=== PATIENT | female | born 1955 | race Caucasian/White ===

== ENCOUNTER 2017-03-10 09:08 | Outpatient (CLI) | payer MEDICAID ==
[2017-03-10 17:38] LABS: BASOPHILS % (AUTO) 0.2 %; EOSINOPHILS # (AUTO) 0.3 10^3/uL (0.0-0.7); HCT - HEMATOCRIT 42.8 % (37.0-47.0); HGB - HEMOGLOBIN 14.2 g/dL (12.0-16.0); LYMPHOCYTES % (AUTO) 25.5 %; MEAN CORPUSCULAR HEMOGLOBIN 28.7 pg (27.0-31.0); MEAN CORPUSCULAR HGB CONC 33.2 g/dL (32.0-36.0); MEAN CORPUSCULAR VOLUME 86.3 fL (81.0-99.0); MEAN PLATELET VOLUME 7.4 fL (7.9-10.8); MONOCYTES # (AUTO) 0.8 10^3/uL (0.0-1.0); MONOCYTES % (AUTO) 6.8 %; NEUTROPHILS # (AUTO) 7.5 10^3/uL (1.5-6.6); NEUTROPHILS % (AUTO) 64.5 %; NUCLEATED RED BLOOD CELLS AUTO 0.1 /100WBC; RED BLOOD COUNT 4.97 10^6/uL (4.20-5.40); RED CELL DISTRIBUTION WIDTH 13.9 % (12.0-15.0); UNCORRECTED WHITE BLOOD COUNT 11.6 x10^3/uL; WHITE BLOOD COUNT 11.6 x10^3/uL (4.8-10.8)
[2017-03-10 18:00] LABS: ALBUMIN/GLOBULIN RATIO 1.3 (1.0-2.2); BILIRUBIN,TOTAL 0.6 mg/dL (0.2-1.0); BUN - BLOOD UREA NITROGEN 17 mg/dL (6-20); CALCIUM 9.6 mg/dL (8.5-10.3); CARBON DIOXIDE - CO2 25 mmol/L (21-32); CHLORIDE 106 mmol/L (101-111); CHOL/HDL RATIO 3.7 (<4.4); CHOLESTEROL 177 mg/dL; CREATININE 0.7 mg/dL (0.4-1.0); GFR - MDRD 85 (>89); GLUCOSE 103 mg/dL (70-100); HDL CHOLESTEROL 48 mg/dL; LDL/HDL RATIO 2.2 (<4.4); POTASSIUM 3.6 mmol/L (3.5-5.0); SODIUM 138 mmol/L (135-145); TOTAL PROTEIN 7.2 g/dL (6.7-8.2); TRIGLYCERIDES 113 mg/dL; VLDL CHOLESTEROL 23 mg/dL
== END 2017-03-10 09:09 | disposition home or self-care (01) ==
LOC: LAB.F 09:08
PROVIDERS: ATTEND Nurse Practitioner Family
DX: Z82.49 Family history of ischemic heart disease and other diseases of the circulatory system (principal); E78.5 Hyperlipidemia, unspecified
CPT/HCPCS: 36415; 80053; 80061; 84443; 85025

== ENCOUNTER 2017-12-23 10:16 | Outpatient (CLI) | payer MEDICAID ==
--- NOTE | 2017-12-23 11:43 | XRAY Report ---
Procedure Date: 12/23/2017 Accession Number: [id number] / [id number] Procedure: XRS - Hand 3 View LT CPT Code: FULL RESULT: EXAM: Hand 3 View LT DATE: 12/23/2017 10:29 AM CLINICAL HISTORY: PAIN IN LEFT HAND COMPARISON: None. TECHNIQUE: 3 views. FINDINGS: Radiograph is limited by suboptimal positioning of the AP view. This limits evaluation of the scapholunate interval. Bones: Normal. No fractures or bone lesions. Joints: Mild to moderate osteoarthrosis of the first carpometacarpal joint with subluxation. Soft Tissues: Normal. No soft tissue swelling. IMPRESSION: No fracture or dislocation is identified. Degenerative changes of the base of the thumb. If there is concern for injury in the region of the scaphoid/wrist injury. Scaphoid views could be obtained. RADIA
== END 2017-12-23 10:17 | disposition home or self-care (01) ==
LOC: DI.S 10:16
PROVIDERS: ATTEND Nurse Practitioner Family
DX: M18.12 Unilateral primary osteoarthritis of first carpometacarpal joint, left hand (principal); M79.642 Pain in left hand

== ENCOUNTER 2018-03-06 11:46 | Outpatient (CLI) | payer MEDICAID | END 2018-03-06 11:47 | disposition critical access hospital (66) | LOC: EMS 11:46 | PROVIDERS: ATTEND Surgery | DX: R09.89 Other specified symptoms and signs involving the circulatory and respiratory systems (principal); R42 Dizziness and giddiness | CPT/HCPCS: A0425; A0429; A0999 ==

== ENCOUNTER 2018-03-06 12:15 | Emergency (ER) | payer MEDICAID ==
--- NOTE | 2018-03-06 12:30 | ED Physician Documentation ---
PD HPI CHEST PAIN - Stated complaint Stated Complaint: PALPITATIONS - History obtained from History obtained from: Patient - History of Present Illness Timing - onset: Other (For the last 3-4 days she has had intermittent sensations of rapid heartbeat, there is no associated pain but she is short of breath and dizzy when it happens. It will happen from seconds to minutes at a time, there is no clear pattern to it. She denies pedal edema. She does have a history of thyroid issues but she is not sure whether she was hypothyroid or hyperthyroid. No pedal edema or calf pain. She has an extensive family history of coronary disease.) Review of Systems Ten Systems: 10 systems reviewed and negative Constitutional: denies: Fever, Chills Cardiac: reports: Palpitations. denies: Chest pain / pressure, Pedal edema, Calf pain Respiratory: denies: Cough, Wheezing GI: denies: Abdominal Pain, Abdominal Swelling, Nausea, Vomiting PD PAST MEDICAL HISTORY - Present Medications Home Medications: Ambulatory Orders Medication Instructions Recorded Confirmed Potassium Chloride 10 meq PO DAILY #10 capsule.er 03/06/18 - Allergies Allergies/Adverse Reactions: Allergies Allergy/AdvReac Type Severity Reaction Status Date / Time No Known Drug Allergies Allergy Verified 03/06/18 12:20 PD ED PE NORMAL - Vitals Vital signs reviewed: Yes - General General: Alert and oriented X 3, No acute distress - HEENT HEENT: PERRL, EOMI - Neck Neck: Supple, no meningeal sign, No bony TTP - Cardiac Cardiac: RRR, No murmur - Respiratory Respiratory: No respiratory distress, Clear bilaterally - Abdomen Abdomen: Normal bowel sounds, Soft, Non tender - Back Back: No CVA TTP, No spinal TTP - Extremities Extremities: No edema, No calf tenderness / cord - Neuro Neuro: Alert and oriented X 3, Normal speech - Psych Psych: Normal mood, Normal affect Results - Vitals Vitals: Vital Signs - 24 hr 03/06/18 03/06/18 03/06/18 12:20 13:45 14:36 Temperature 36.5 C Heart Rate 92 54 L 67 Respiratory 18 23 17 Rate Blood Pressure 152/118 H 92/61 138/85 H O2 Saturation 95 100 100 Oxygen O2 Source Room air - EKG (time done) 1221 Rate: Rate (enter#) (89) Rhythm: NSR [place]: Normal Intervals: Normal ID QRS: Normal Ischemia: Normal ST segments Computer interpretation: Agree with computer - Labs Labs: Laboratory Tests 03/06/18 03/06/18 03/06/18 12:55 12:55 12:55 WBC 8.9 RBC 5.13 Hgb 15.0 Hct 43.3 MCV 84.3 MCH 29.3 MCHC 34.8 RDW 13.7 Plt Count 347 MPV 6.9 L Neut # (Auto) 5.4 Lymph # (Auto) 2.4 Bath # (Auto) 0.6 Eos # (Auto) 0.2 Baso # (Auto) 0.3 H Absolute Nucleated RBC 0.01 Nucleated RBC % 0.1 Sodium 136 Potassium 2.8 L Chloride 102 Carbon Dioxide 25 Anion Gap 9.0 BUN 13 Creatinine 0.6 Estimated GFR (MDRD) 101 Glucose 104 H Calcium 9.3 Magnesium 2.1 Total Bilirubin 0.9 AST 27 ALT 25 Alkaline Phosphatase 71 Troponin I < 0.04 Total Protein 7.4 Albumin 4.3 Globulin 3.1 Albumin/Globulin Ratio 1.4 Lipase 30 TSH 03/06/18 12:55 WBC RBC Hgb Hct MCV MCH MCHC RDW Plt Count MPV Neut # (Auto) Lymph # (Auto) Bath # (Auto) Eos # (Auto) Baso # (Auto) Absolute Nucleated RBC Nucleated RBC % Sodium Potassium Chloride Carbon Dioxide Anion Gap BUN Creatinine Estimated GFR (MDRD) Glucose Calcium Magnesium Total Bilirubin AST ALT Alkaline Phosphatase Troponin I Total Protein Albumin Globulin Albumin/Globulin Ratio Lipase TSH 2.29 PD MEDICAL DECISION MAKING - ED course ED course: 62-year-old woman presents with palpitations. Prehospital rhythm strips were reviewed and she is having intermittent SVT that looks like a narrow complex atrial flutter the last for seconds at a time. I was called into the room around 1:18 PM, she was having symptoms and on the monitor she was in rapid atrial fibrillation, by the time I got into the room to have resolved back into a normal sinus rhythm. She was administered 5 mg of metoprolol IV. Also her potassium was repleted both IV and orally. After completion of this she had no further recurrence of the atrial fibrillation. She will double her metoprolol and follow-up with her primary care physician. Departure - Departure Disposition: 01 Home, Self Care Clinical Impression: Paroxysmal atrial fibrillation Condition: Good Record reviewed to determine appropriate education?: Yes Instructions: Atrial Fibrillation Dc Prescriptions: Potassium Chloride 10 meq PO DAILY #10 capsule.er Comments: Increase your metoprolol to twice a day, taking an extra dose tonight. Also add the potassium supplements and a baby aspirin a day. Follow-up with your primary care physician within the week to discuss further evaluation and treatment, potentially echocardiogram plus or minus cardiology referral especially if symptoms are recurrent.
[2018-03-06 13:02] LABS: BASOPHILS # (AUTO) 0.3 10^3/uL (0.0-0.1); BASOPHILS % (AUTO) 3.2 %; EOSINOPHILS # (AUTO) 0.2 10^3/uL (0.0-0.7); LYMPHOCYTES # (AUTO) 2.4 10^3/uL (1.5-3.5); LYMPHOCYTES % (AUTO) 27.3 %; MEAN CORPUSCULAR HEMOGLOBIN 29.3 pg (27.0-31.0); MEAN CORPUSCULAR HGB CONC 34.8 g/dL (32.0-36.0); MEAN CORPUSCULAR VOLUME 84.3 fL (81.0-99.0); MEAN PLATELET VOLUME 6.9 fL (7.9-10.8); MONOCYTES # (AUTO) 0.6 10^3/uL (0.0-1.0); MONOCYTES % (AUTO) 6.2 %; NEUTROPHILS # (AUTO) 5.4 10^3/uL (1.5-6.6); NEUTROPHILS % (AUTO) 61.3 %; PLT - PLATELET COUNT 347 10^3/uL (130-450); RED BLOOD COUNT 5.13 10^6/uL (4.20-5.40); RED CELL DISTRIBUTION WIDTH 13.7 % (12.0-15.0); WHITE BLOOD COUNT 8.9 x10^3/uL (4.8-10.8)
[2018-03-06] MEDS ORDERED: METOPROLOL 5 MG/5 ML VIAL IVP STA (13:19)
[2018-03-06 13:25] LABS: ALBUMIN 4.3 g/dL (3.2-5.5); ALBUMIN/GLOBULIN RATIO 1.4 (1.0-2.2); BILIRUBIN,TOTAL 0.9 mg/dL (0.2-1.0); CALCIUM 9.3 mg/dL (8.5-10.3); CREATININE 0.6 mg/dL (0.4-1.0); MAGNESIUM 2.1 mg/dL (1.7-2.8); TOTAL PROTEIN 7.4 g/dL (6.7-8.2)
[2018-03-06] MEDS ORDERED: POTASSIUM BICARB 25 MEQ TABLET PO STA (13:29)
[2018-03-06] MEDS ORDERED: POTASSIUM CHLOR 10 MEQ/100 ML 10 MEQ/100 ML BAG IV ONE (13:29)
[2018-03-06] MEDS ORDERED: SODIUM CHLORIDE 0.9% 1,000 ML IV ONE (13:59)
[2018-03-06 15:23] VITALS: BP 120/92
== END 2018-03-06 15:22 | disposition home or self-care (01) ==
LOC: EDUNIT# → ED 12:15
DX: I48.0 Paroxysmal atrial fibrillation (principal); I47.1 Supraventricular tachycardia; Z82.49 Family history of ischemic heart disease and other diseases of the circulatory system
CPT/HCPCS: 36415; 80053; 83690; 83735; 84443; 84484; 85025; 93005; 96365; 99284; A9270

== ENCOUNTER 2018-03-18 07:30 | Outpatient (CLI) | payer MEDICAID ==
[2018-03-18 10:14] LABS: BASOPHILS % (AUTO) 0.5 %; EOSINOPHILS # (AUTO) 0.4 10^3/uL (0.0-0.7); EOSINOPHILS % (AUTO) 4.3 %; HGB - HEMOGLOBIN 13.5 g/dL (12.0-16.0); LYMPHOCYTES # (AUTO) 3.1 10^3/uL (1.5-3.5); LYMPHOCYTES % (AUTO) 32.3 %; MEAN CORPUSCULAR HEMOGLOBIN 29.2 pg (27.0-31.0); MEAN CORPUSCULAR HGB CONC 34.3 g/dL (32.0-36.0); MEAN PLATELET VOLUME 7.4 fL (7.9-10.8); MONOCYTES # (AUTO) 0.6 10^3/uL (0.0-1.0); MONOCYTES % (AUTO) 6.2 %; NEUTROPHILS # (AUTO) 5.4 10^3/uL (1.5-6.6); NEUTROPHILS % (AUTO) 56.7 %; PLT - PLATELET COUNT 357 10^3/uL (130-450); RED BLOOD COUNT 4.63 10^6/uL (4.20-5.40); RED CELL DISTRIBUTION WIDTH 13.6 % (12.0-15.0); WHITE BLOOD COUNT 9.6 x10^3/uL (4.8-10.8)
[2018-03-18 10:23] LABS: ALBUMIN/GLOBULIN RATIO 1.5 (1.0-2.2); ALKALINE PHOSPHATASE 61 IU/L (42-121); ALT ALANINE AMINOTRANSFERASE 22 IU/L (10-60); AST ASPARTATE AMINOTRANSFERASE 22 IU/L (10-42); BILIRUBIN,TOTAL 0.6 mg/dL (0.2-1.0); BUN - BLOOD UREA NITROGEN 15 mg/dL (6-20); CALCIUM 9.1 mg/dL (8.5-10.3); CARBON DIOXIDE - CO2 25 mmol/L (21-32); CHLORIDE 107 mmol/L (101-111); CHOL/HDL RATIO 3.2 (<4.4); CHOLESTEROL 122 mg/dL; CREATININE 0.6 mg/dL (0.4-1.0); GFR - MDRD 101 (>89); GLUCOSE 102 mg/dL (70-100); HDL CHOLESTEROL 38 mg/dL; LDL CHOLESTEROL,CALCULATED 66 mg/dL; LDL/HDL RATIO 1.7 (<4.4); SODIUM 138 mmol/L (135-145); TOTAL PROTEIN 6.7 g/dL (6.7-8.2); VLDL CHOLESTEROL 18 mg/dL
== END 2018-03-18 07:31 | disposition home or self-care (01) ==
LOC: LAB.F 07:30
PROVIDERS: ATTEND Nurse Practitioner Family
DX: I10 Essential (primary) hypertension (principal); E78.5 Hyperlipidemia, unspecified
CPT/HCPCS: 36415; 80053; 80061; 83721; 84443; 85025

== ENCOUNTER 2018-03-23 13:11 | Outpatient (CLI) | payer MEDICAID ==
--- NOTE | 2018-03-28 10:15 | Mammography Report ---
Reason: SCREENING MAMMOGRAM FOR BREAST CANCER Procedure Date: 03/23/2018 Accession Number: [id number] / [id number] Procedure: DUARTE - Screening Mammo w/Kenny CPT Code: FULL RESULT: EXAM: Screening Mammo w/Kenny DATE: 03/23/2018 1:57 PM CLINICAL HISTORY: Routine screening. No reported personal or family history of breast cancer. TECHNIQUE: Bilateral CC and MLO views were obtained. COMPARISON: 02/19/2015 through 10/26/2012. FINDINGS: The breasts demonstrate heterogeneously dense fibroglandular parenchyma bilaterally. Right breast: There is a stable biopsy marker associated with a circumscribed oval mass in the middle depth right upper outer quadrant. There are no suspicious masses, calcifications or areas of distortion. Left breast: There is a 9 mm asymmetry seen best on CC projections in the 5:30 to 6:00 breast, 3 cm from nipple seen best on 3-D imaging (reference MLO slice 15; CC image 15). There is a stable background of scattered oval and round benign-appearing masses. No suspicious calcifications. IMPRESSION: Incomplete examination RECOMMENDATION: Left breast: 9 mm asymmetry in the 5:30 to 6:00 left breast as described. BI-RADS Category 0. Additional imaging is recommended. Right breast: Benign. BI-RADS Category 2. BI-RADS CATEGORY 0: Incomplete examination STANDARD QUALIFYING STATEMENTS: 1. This examination was not reviewed with the aid of Computer-Aided Detection (CAD). 2. A negative or benign imaging report should not preclude biopsy if clinically suspicious findings are present. 3. Dense breasts may obscure an underlying neoplasm. 4. This examination was reviewed with the aid of 3D breast imaging (tomosynthesis).
== END 2018-03-23 13:12 | disposition home or self-care (01) ==
LOC: DI 13:11
PROVIDERS: ATTEND Nurse Practitioner Family
DX: Z12.31 Encounter for screening mammogram for malignant neoplasm of breast (principal); R92.8 Other abnormal and inconclusive findings on diagnostic imaging of breast
CPT/HCPCS: 77063; 77067

== ENCOUNTER 2018-03-27 09:24 | Outpatient (CLI) | payer MEDICAID | END 2018-03-27 09:25 | disposition EMS.NT | LOC: EMS 09:24 | PROVIDERS: ATTEND Surgery | DX: R00.0 Tachycardia, unspecified (principal) ==

== ENCOUNTER 2018-04-19 12:59 | Outpatient (CLI) | payer MEDICAID ==
--- NOTE | 2018-04-19 16:18 | Mammography Report ---
Reason: ABN MAMMO - LT SPECIAL VIEWS Procedure Date: 04/19/2018 Accession Number: [id number] / [id number] Procedure: DUARTE - Diag Special Views Dig LT CPT Code: FULL RESULT: EXAM: Diag Special Views Dig LT DATE: 04/19/2018 2:19 PM CLINICAL HISTORY: Diagnostic examination. The patient is recalled for a left breast asymmetry seen on screening mammogram. TECHNIQUE: Left spot CC and spot MLO as well as left MLO images were obtained. Focused left breast ultrasound was performed. COMPARISON: 03/23/2018 through 10/26/2012. FINDINGS: The left breast demonstrates heterogeneously dense fibroglandular parenchyma . No definite underlying mass is identified on today's imaging. Focused breast ultrasound examination identified no mass or other finding correlate to the mammographic asymmetry. Spot views demonstrate the asymmetry to appears similar to surrounding breast tissue, probably benign. No suspicious calcifications, masses or architectural distortion is identified. IMPRESSION: Probable benign findings RECOMMENDATION: Recommend diagnostic bilateral mammogram in 6 months. BIRADS CATEGORY 3 STANDARD QUALIFYING STATEMENTS: 1. This examination was not reviewed with the aid of Computer-Aided Detection (CAD). 2. A negative or benign imaging report should not delay biopsy if clinically suspicious findings are present. Consider surgical consultation if warrented. More than 5% of cancers are not identified by imaging. 3. Dense breasts may obscure an underlying neoplasm. 4. This examination was reviewed with the aid of 3D imaging (tomography).
== END 2018-04-19 13:00 | disposition home or self-care (01) ==
LOC: DI 12:59
PROVIDERS: ATTEND Nurse Practitioner Family
DX: R92.8 Other abnormal and inconclusive findings on diagnostic imaging of breast (principal); N64.89 Other specified disorders of breast
CPT/HCPCS: 76642

== ENCOUNTER 2018-10-25 12:28 | Outpatient (CLI) | payer MEDICARE ==
--- NOTE | 2018-10-25 13:42 | Mammography Report ---
Reason: 6 MONTH FOLLOW UP Procedure Date: 10/25/2018 Accession Number: [id number] / [id number] Procedure: DUARTE - Diagnostic Left 3D Kenny CPT Code: 82357 FULL RESULT: EXAM: Diagnostic Dig LT, Diagnostic Left 3D Kenny DATE: 10/25/2018 1:18 PM CLINICAL HISTORY: Small anterior left breast asymmetry identified on screening mammogram from 03/23/2018. No confirmation of that finding on callback exam from 04/19/2018. TECHNIQUE: (L) - Left. CC and MLO views were obtained, and in addition, 3-D mammography was performed the left breast. COMPARISON: 04/19/2018, 03/23/2018 PARENCHYMAL PATTERN: (A) - The breasts demonstrate scattered fibroglandular densities bilaterally. FINDINGS: Tiny left axillary tail intramammary lymph node again noted. There are no suspicious masses, calcifications, or areas of distortion. There is no confirmation of the anterior left breast nodule. IMPRESSION: Negative examination. BI-RADS category 1. RECOMMENDATION: (ANNUAL) - Recommend routine annual screening mammography. BI-RADS CATEGORY: (1) - Negative. STANDARD QUALIFYING STATEMENTS: 1. This examination was not reviewed with the aid of Computer-Aided Detection (CAD). 2. A negative or benign imaging report should not preclude biopsy if clinically suspicious findings are present. 3. Dense breasts may obscure an underlying neoplasm. 4. This examination was reviewed with the aid of 3D breast imaging (tomosynthesis).
--- NOTE | 2018-10-25 13:42 | Mammography Report ---
Reason: ABNORMAL MAMMO, LT BREAST Procedure Date: 10/25/2018 Accession Number: [id number] / [id number] Procedure: DUARTE - Diagnostic Dig LT CPT Code: FULL RESULT: EXAM: Diagnostic Dig LT, Diagnostic Left 3D Kenny DATE: 10/25/2018 1:18 PM CLINICAL HISTORY: Small anterior left breast asymmetry identified on screening mammogram from 03/23/2018. No confirmation of that finding on callback exam from 04/19/2018. TECHNIQUE: (L) - Left. CC and MLO views were obtained, and in addition, 3-D mammography was performed the left breast. COMPARISON: 04/19/2018, 03/23/2018 PARENCHYMAL PATTERN: (A) - The breasts demonstrate scattered fibroglandular densities bilaterally. FINDINGS: Tiny left axillary tail intramammary lymph node again noted. There are no suspicious masses, calcifications, or areas of distortion. There is no confirmation of the anterior left breast nodule. IMPRESSION: Negative examination. BI-RADS category 1. RECOMMENDATION: (ANNUAL) - Recommend routine annual screening mammography. BI-RADS CATEGORY: (1) - Negative. STANDARD QUALIFYING STATEMENTS: 1. This examination was not reviewed with the aid of Computer-Aided Detection (CAD). 2. A negative or benign imaging report should not preclude biopsy if clinically suspicious findings are present. 3. Dense breasts may obscure an underlying neoplasm. 4. This examination was reviewed with the aid of 3D breast imaging (tomosynthesis).
== END 2018-10-25 12:29 | disposition home or self-care (01) ==
LOC: DI 12:28
PROVIDERS: ATTEND Registered Nurse
DX: R92.8 Other abnormal and inconclusive findings on diagnostic imaging of breast (principal)
CPT/HCPCS: 77065; G0279

== ENCOUNTER 2019-10-18 07:47 | Outpatient (CLI) | payer MEDICARE ==
[2019-10-18 15:25] LABS: BASOPHILS % (AUTO) 0.4 %; EOSINOPHILS # (AUTO) 0.4 10^3/uL (0.0-0.7); LYMPHOCYTES # (AUTO) 3.1 10^3/uL (1.5-3.5); LYMPHOCYTES % (AUTO) 32.5 %; MEAN CORPUSCULAR HEMOGLOBIN 28.1 pg (27.0-31.0); MEAN CORPUSCULAR HGB CONC 32.2 g/dL (32.0-36.0); MEAN CORPUSCULAR VOLUME 87.3 fL (81.0-99.0); MEAN PLATELET VOLUME 9.4 fL (7.9-10.8); MONOCYTES # (AUTO) 0.7 10^3/uL (0.0-1.0); MONOCYTES % (AUTO) 7.2 %; NEUTROPHILS # (AUTO) 5.2 10^3/uL (1.5-6.6); NEUTROPHILS % (AUTO) 55.4 %; PLT - PLATELET COUNT 397 10^3/uL (130-450); RED BLOOD COUNT 4.98 10^6/uL (4.20-5.40); RED CELL DISTRIBUTION WIDTH 13.5 % (12.0-15.0); WHITE BLOOD COUNT 9.4 x10^3/uL (4.8-10.8)
[2019-10-18 15:35] LABS: ALBUMIN/GLOBULIN RATIO 1.3 (1.0-2.2); ALKALINE PHOSPHATASE 54 IU/L (42-121); ALT ALANINE AMINOTRANSFERASE 25 IU/L (10-60); AST ASPARTATE AMINOTRANSFERASE 28 IU/L (10-42); BILIRUBIN,TOTAL 0.5 mg/dL (0.2-1.0); BUN - BLOOD UREA NITROGEN 18 mg/dL (6-20); CALCIUM 9.2 mg/dL (8.5-10.3); CARBON DIOXIDE - CO2 27 mmol/L (21-32); CHLORIDE 103 mmol/L (101-111); CHOL/HDL RATIO 3.4 (<4.4); CHOLESTEROL 172 mg/dL; CREATININE 0.7 mg/dL (0.4-1.0); GLUCOSE 108 mg/dL (70-100); HDL CHOLESTEROL 50 mg/dL; LDL CHOLESTEROL,CALCULATED 105 mg/dL; LDL/HDL RATIO 2.1 (<4.4); SODIUM 138 mmol/L (135-145); VLDL CHOLESTEROL 17 mg/dL
== END 2019-10-18 07:48 | disposition home or self-care (01) ==
LOC: LAB.S 07:47
PROVIDERS: ATTEND Registered Nurse
DX: I48.91 Unspecified atrial fibrillation (principal); I10 Essential (primary) hypertension; E78.5 Hyperlipidemia, unspecified
CPT/HCPCS: 36415; 80053; 80061; 83721; 84443; 85025

== ENCOUNTER 2021-09-25 12:03 | Emergency (ER) | payer MEDICARE, MEDICAID ==
--- NOTE | 2021-09-25 13:04 | ED Physician Documentation ---
History of Present Illness - Stated complaint Stated Complaint: LT SHOULDER PX - Chief complaint Chief Complaint: Ext Problem - Additonal information Additional information: 66-year-old female presents emergency department for evaluation of acute on chronic left shoulder pain. States that she had an episode of shoulder pain about a year ago. It briefly resolved but is occasionally flared over the last year. 2 days ago she was throwing a ball for her dog and felt a pop in her arm. Pain since. She also has some minor swelling. She is left arm dominant. No history of treatment or surgery on the shoulder. She is anticoagulated on Eliquis secondary to history of atrial fibrillation. No falls or trauma. Review of Systems Constitutional: denies: Fever, Chills Throat: reports: Reviewed and negative Cardiac: reports: Reviewed and negative Respiratory: reports: Reviewed and negative : reports: Reviewed and negative Musculoskeletal: reports: Joint pain PD PAST MEDICAL HISTORY - Past Medical History Cardiovascular: Hypertension - Past Surgical History Past Surgical History: Yes General: Appendectomy - Present Medications Home Medications: Ambulatory Orders Medication Instructions Recorded Confirmed Potassium Chloride 10 meq PO DAILY #10 capsule.er 03/06/18 HYDROcod/ACETAM 5/325 [Shelley 5/325] 1 tablet PO BID PRN #10 tablet 09/25/21 - Allergies Allergies/Adverse Reactions: Allergies Allergy/AdvReac Type Severity Reaction Status Date / Time No Known Drug Allergies Allergy Verified 09/25/21 12:18 - Social History Does the pt smoke?: Yes Smoking Status: Former smoker Does the pt drink ETOH?: No Does the pt have substance abuse?: No - Immunizations Immunizations are current?: Yes - POLST Patient has POLST: No PD ED PE EXPANDED - General General: Alert, No acute distress - Cardiac Cardiac: Irregularly irregular - Respiratory Respiratory: Clear to ausultation brenda. No: Distress, Labored - Extremities Extremities: Left shoulder (Swelling without erythema or ecchymosis to the left anterior shoulder joint. Markedly reduced abduction and abduction to only 30 degrees. Positive drop arm. 2+ radial pulse.) Results - Vitals Vitals: Vital Signs - 24 hr 09/25/21 12:16 Temperature 36.3 C L Heart Rate 84 Respiratory 16 Rate Blood Pressure 146/92 H O2 Saturation 96 Oxygen O2 Source Room air - Rads (name of study) left shoulder Radiology: Final report received (No acute osseous abnormality. High riding humeral head with narrowing of the AC interval which is suspicious for underlying chronic rotator cuff tendon tearing.) PD MEDICAL DECISION MAKING - ED course Complexity details: reviewed results, re-evaluated patient, considered differential, d/w patient ED course: 66-year-old female who has past medical history most significant for atrial fib for which she is on Eliquis presents the emergency department for evaluation of acute on chronic left shoulder pain. Initially reports an injury about a year ago that is waxed and waned in its progress but got acutely worse 2 days ago when she threw a ball for her dog. She is left arm dominant. On exam she has palpable swelling of the anterior shoulder joint without ecchymosis or erythema. No fevers. Limited range of motion and a positive drop arm test makes me highly suspicious for rotator cuff tendinopathy. She may also have an inflamed bursal joint. X-ray is suggestive of rotator cuff tendinopathy. Patient is placed in a sling and advised follow-up with her primary care provider. She would benefit from further MRI and/or orthopedic referral. Departure - Departure Disposition: 01 Home, Self Care Clinical Impression: Left rotator cuff tear arthropathy Condition: Stable Record reviewed to determine appropriate education?: Yes Instructions: ED Torn Rotator Cuff, ED Tendinitis Rotator Cuff Follow-Up: Ashley Gibson ARNP [Primary Care Provider] - Prescriptions: HYDROcod/ACETAM 5/325 [Shelley 5/325] 1 tablet PO BID PRN #10 tablet PRN Reason: Pain Comments: Maggie you are seen today in the emergency department because you have pain in your left shoulder that seems acutely worse over the last few days after throwing a ball for her dog. It sounds as though you have a rotator cuff tear. The x-ray is also very suggestive of this. We have given you a sling to help with comfort but please make sure that you are avoiding a frozen shoulder by doing the arm swings every day. It is also possible that you have an inflamed bursa sac but the treatment at this time does not change. I do recommend a shoulder compress as well as icing the shoulder if you find it helpful. Your primary care provider should make a referral for you to orthopedics for follow-up. You would benefit from a MRI of the shoulder for further evaluation of your rotator cuff tear. Please rarely use NSAID medications like ibuprofen, naproxen Aleve or Advil while taking anticoagulant medication such as Eliquis as it does increase your risk of serious bleeding when taking both I am sending a prescription for a limited amount of hydrocodone to [facility] in [place] I am prescribing a short course of narcotic pain medication for you. These are potentially dangerous and addictive medications that should be used carefully. These medications may constipate you. Take an zcvw-dny-mwqssbw stool softener (docusate) twice daily with plenty of water while taking these medications. If you go 24 hours without a bowel movement, take tfmd-tcw-[id number] miralax, per package instructions. Do not drink or drive while taking these medications. If you received narcotic or sedating medications while in the emergency department, do not drive for 24 hours. Store this medication in a safe, secure place and out of reach of children. It is a violation of federal law to give or sell this medication to another person or to use in a manner other than prescribed. The ED will not refill narcotic prescriptions, including prescriptions lost or stolen. To dispose of unwanted medications: 1. [facility] at [address] in [place] has a medication drop box. They accept prescription medications (in pill form) Wednesday through Wednesday 9:00 a.m. to 5:00 p.m. 2. The [facility] accepts prescription medications (in pill form only) for disposal year round. Call for more information. 3. Contact the [facility] for the next [facility] sponsored prescription drug collection event. , [phone], or [phone]; Note that many narcotic pain relievers also contain Tylenol/acetaminophen. Please ensure that your total dose of acetaminophen from all sources does not exceed 3 g (3000 mg) per day.
--- NOTE | 2021-09-25 13:06 | XRAY Report ---
PROCEDURE: Shoulder 3 View LT INDICATIONS: pain TECHNIQUE: 3 views of the shoulder were acquired. COMPARISON: None. FINDINGS: Bones: No acute fractures or dislocations. No suspicious bony lesions. Visualized ribs appear inta ct. The humeral head is high riding with narrowing of the acromiohumeral interval. Soft tissues: No suspicious soft tissue calcifications. IMPRESSION: 1.No acute osseous abnormality. 2.High riding humeral head with narrowing of the acromiohumeral interval, which is suspicious for und erlying chronic rotator cuff tendon tearing. Consider MRI for further evaluation if indicated clinica lly. Reviewed by: Jairo Mehta MD on 09/25/2021 1:05 PM PDT Approved by: Jairo Mehta MD on 09/25/2021 1:05 PM PDT Station ID: [id number]
[2021-09-25 14:51] VITALS: BP 138/87
== END 2021-09-25 13:41 | disposition home or self-care (01) ==
LOC: ED 12:03
DX: M75.102 Unspecified rotator cuff tear or rupture of left shoulder, not specified as traumatic (principal); I48.91 Unspecified atrial fibrillation; Z79.01 Long term (current) use of anticoagulants; I10 Essential (primary) hypertension; Z87.891 Personal history of nicotine dependence
CPT/HCPCS: 99283

== ENCOUNTER 2022-01-12 08:00 | Outpatient (CLI) | payer MEDICARE, MEDICAID ==
--- NOTE | 2022-01-12 13:57 | XRAY Report ---
PROCEDURE: Wrist 3 View RT INDICATIONS: WRIST FX TECHNIQUE: 3 views of the wrist were acquired. COMPARISON: 01/03/2022 FINDINGS: Bones: Healing distal radial metaphyseal fracture present. Fracture line shows remodeling There is tr iscaphe and first carpometacarpal joint osteoarthritis present. Soft tissues: No suspicious soft tissue calcifications. IMPRESSION: Healing distal radial fracture Reviewed by: Tano Way MD on 01/12/2022 12:56 PM AKDT Approved by: Tano Way MD on 01/12/2022 12:56 PM AKDT Station ID: [id number]
--- NOTE | 2022-01-13 09:43 | XRAY Report ---
PROCEDURE: Knee 3 View RT INDICATIONS: PATELLA FX TECHNIQUE: Three views of the right knee COMPARISON: 01/03/2022 FINDINGS: Unchanged subacute right patellar fracture. Large suprapatellar knee joint effusion is similar. No ad ditional fracture demonstrated. Prepatellar soft tissue swelling is similar. IMPRESSION: No significant change. Reviewed by: Guy Tierney MD on 01/13/2022 9:42 AM PDT Approved by: Guy Tierney MD on 01/13/2022 9:42 AM PDT Station ID: [id number]
== END 2022-01-12 23:59 | disposition home or self-care (01) ==
LOC: DI.WOS 08:00
PROVIDERS: ATTEND Physician Assistant Surgical
DX: S82.024D Nondisplaced longitudinal fracture of right patella, subsequent encounter for closed fracture with routine healing (principal); S52.501D Unspecified fracture of the lower end of right radius, subsequent encounter for closed fracture with routine healing

== ENCOUNTER 2022-02-03 08:00 | Outpatient (CLI) | payer MEDICARE, MEDICAID ==
--- NOTE | 2022-02-03 17:10 | XRAY Report ---
PROCEDURE: Wrist 3 View RT INDICATIONS: WRIST FX TECHNIQUE: 3 views of the wrist were acquired. COMPARISON: Right wrist radiographs 01/12/2022. FINDINGS: Bones: Increased calcification at the distal radius fracture. Stable alignment. Minimal displacement on the lateral projection. No dislocations. No suspicious bony lesions. Moderate degenerative almanza e at the first CMC joint. Soft tissues: No suspicious soft tissue calcifications. IMPRESSION: Going healing at the distal radius fracture. Reviewed by: Dhaval Lennon MD on 02/03/2022 5:09 PM PDT Approved by: Dhaval Lennon MD on 02/03/2022 5:09 PM PDT Station ID: [id number]
--- NOTE | 2022-02-03 18:28 | XRAY Report ---
PROCEDURE: Knee 3 View RT INDICATIONS: RIGHT PATELLA FX TECHNIQUE: 3 views of the right knee(s) were acquired. COMPARISON: 01/12/2022 FINDINGS: Bones: Healing minimally displaced patellar fracture without further displacement. Superior subluxat ion of the patella compared to prior imaging. Small ossifications of the MCL, likely prior injury. Ob literation of the patellofemoral joint space. Mild to moderate arthrosis. Soft tissues: Decreased edema and joint effusion around the patellar fracture. IMPRESSION: Patellar minimally displaced fracture again seen. Decreased edema and joint effusion.. C ompared to prior, the patella is more superiorly position, which may be related to weightbearing view s today. Correlate for patellar tendon integrity. Reviewed by: Marcin Tracey MD on 02/03/2022 6:27 PM PDT Approved by: Marcin Tracey MD on 02/03/2022 6:27 PM PDT Station ID: [id number]
== END 2022-02-03 23:59 | disposition home or self-care (01) ==
LOC: DI.WOS 08:00
PROVIDERS: ATTEND Physician Assistant Surgical
DX: S82.021D Displaced longitudinal fracture of right patella, subsequent encounter for closed fracture with routine healing (principal); S52.501D Unspecified fracture of the lower end of right radius, subsequent encounter for closed fracture with routine healing

== ENCOUNTER 2022-02-17 08:00 | Outpatient (CLI) | payer MEDICARE, MEDICAID ==
--- NOTE | 2022-02-17 17:43 | XRAY Report ---
PROCEDURE: Knee 3 View RT INDICATIONS: RIGHT PATELLA FX TECHNIQUE: 3 views of the right knee(s) were acquired. COMPARISON: 02/03/2022, 01/12/2022 and 01/03/2022 FINDINGS: Bones: No fractures nondisplaced lateral patella body fracture is again seen with up to 1.4 mm diast ases at fracture site. No significant callus formation at fracture site is seen. No definite bony uni on is seen. No new fracture or dislocation. Moderate tricompartmental osteoarthritis is noted. No guerita picious bony lesions. Soft tissues: No significant joint effusion. No suspicious soft tissue calcifications. IMPRESSION: Stable appearance of nondisplaced lateral patella fracture not significantly changed fro m prior study. No significant joint effusion. Moderate tricompartmental osteoarthritis. Reviewed by: Paul Ambriz MD on 02/17/2022 5:41 PM PDT Approved by: Paul Ambriz MD on 02/17/2022 5:41 PM PDT Station ID: [id number]
--- NOTE | 2022-02-18 09:46 | XRAY Report ---
PROCEDURE: Wrist 3 View RT INDICATIONS: RIGHT WRIST FX TECHNIQUE: Three views of the wrist were acquired. COMPARISON: 02/03/2022 FINDINGS: Impacted right distal radius fracture with mild dorsal angulation. The appearance is not significantl y changed from 02/03/2022 exam. There is no evidence of significant interval healing. IMPRESSION: No significant interval healing changes when compared with 02/03/2022 exam. Reviewed by: Guy Tierney MD on 02/18/2022 9:44 AM PDT Approved by: Guy Tierney MD on 02/18/2022 9:44 AM PDT Station ID: [id number]
== END 2022-02-17 23:59 | disposition home or self-care (01) ==
LOC: DI.WOS 08:00
PROVIDERS: ATTEND Physician Assistant Surgical
DX: S82.024D Nondisplaced longitudinal fracture of right patella, subsequent encounter for closed fracture with routine healing (principal); M17.11 Unilateral primary osteoarthritis, right knee; S52.501D Unspecified fracture of the lower end of right radius, subsequent encounter for closed fracture with routine healing

== ENCOUNTER 2022-07-14 13:46 | Outpatient (CLI) | payer MEDICARE, MEDICAID ==
--- NOTE | 2022-07-15 12:30 | Mammography Report ---
BILATERAL DIGITAL SCREENING MAMMOGRAM 3D/2D: 07/14/2022 CLINICAL: Routine screening. Comparison is made to exams dated: 10/25/2018 mammogram, 04/19/2018 mammogram, 03/23/2018 mammogram - [facility], and 02/19/2015 mammogram - outside facility. There are scattered areas of fibroglandular density in both breasts (category b / 25%-50% glandular t issue). There is a biopsy clip in the right breast. No significant masses, calcifications, or other findings are seen in either breast. There has been no significant interval change. IMPRESSION: NEGATIVE There is no mammographic evidence of malignancy. A 1 year screening mammogram is recommended. Based on the Tyrer Cuzick model (a risk assessment model) the patients lifetime risk is 4.9% and her 10 year risk is 2.7%. According to the ACR, ACS, and NCCN guidelines, an annual breast MRI exam mateo g with mammogram is recommended if the patients lifetime risk is 20% or greater. This exam was interpreted at Station ID: [id number]. NOTE: For mammograms, a report in lay terms will be sent to the patient. Approximately 15% of breast malignancies will not be visualized mammographically. In the management of a palpable breast mass, a negative mammogram must not discourage biopsy of a clinically suspicious lesion. Electronically Signed By: Dhaval tracy/chris:07/14/2022 16:41:27 letter sent: No_Letter ACR BI-RADS Category 1: Negative 3341F PARENCHYMAL PATTERN: (A) - The breast(s) demonstrate(s) scattered fibroglandular densities. BI-RADS CATEGORY: (1) - 1 RECOMMENDATION: (ANNUAL) - Recommend routine annual screening mammography. [id number] 1 year screening LATERALITY: (B)
== END 2022-07-14 13:47 | disposition home or self-care (01) ==
LOC: DI.S 13:46
PROVIDERS: ATTEND Registered Nurse
DX: Z12.31 Encounter for screening mammogram for malignant neoplasm of breast (principal)

== ENCOUNTER 2023-08-22 11:38 | Emergency (ER) | payer MEDICARE ==
--- NOTE | 2023-08-22 13:06 | ED Physician Documentation ---
PD HPI UPPER EXT INJURY - Stated complaint Stated Complaint: RT HAND INJURY - Chief complaint Chief Complaint: Wound - History obtained from History obtained from: Patient - History of Present Illness Location: Right, Finger (index finger tip) Type of injury: Other (dog bite of finger tip when she tried to break up a fight between her dog and another at a dog park.) Where injury occurred: Other (dog park) Timing - onset: Today Timing - details: Abrupt onset, Still present Worsened by: Palpating. No: Moving Associated symptoms: Swelling. No: Weakness, Numbness Review of Systems Neurologic: denies: Focal weakness, Numbness PD PAST MEDICAL HISTORY - Past Medical History Cardiovascular: Hypertension - Past Surgical History Past Surgical History: Yes General: Appendectomy - Present Medications Home Medications: Ambulatory Orders Medication Instructions Recorded Confirmed Potassium Chloride 10 meq PO DAILY #10 capsule.er 03/06/18 08/22/23 Amox/Clav 875/125 [Augmentin] 1 each PO BID #10 tablet 08/22/23 Apixaban [Eliquis] 5 mg ORAL BID 08/22/23 08/22/23 Atorvastatin Calcium 40 mg PO DAILY 08/22/23 08/22/23 dilTIAZem HCL [Diltiazem 24Hr ER] 120 mg PO BID 08/22/23 08/22/23 hydroCHLOROthiazide [Hydrodiuril] 25 mg PO DAILY 08/22/23 08/22/23 - Allergies Allergies/Adverse Reactions: Allergies Allergy/AdvReac Type Severity Reaction Status Date / Time No Known Drug Allergies Allergy Verified 08/22/23 11:53 - Social History Does the pt smoke?: Yes Smoking Status: Current every day smoker Does the pt drink ETOH?: No Does the pt have substance abuse?: No - Immunizations Immunizations are current?: Yes - POLST Patient has POLST: No PD ED PE NORMAL - Vitals Vital signs reviewed: Yes - General General: Alert and oriented X 3, No acute distress, Well developed/nourished - Derm Derm: Normal color, Warm and dry - Extremities Extremities: Other (right index finger with stellate lac radial side at edge of nailbed, not involving it. No FB. some bleeding still. Able to flex and extend a t DIP and PIP. No bony tenderness. ) - Neuro Neuro: No motor deficit, No sensory deficit Results - Vitals Vitals: Vital Signs - 24 hr 08/22/23 08/22/23 11:50 13:44 Temperature 36.4 C L 36.3 C L Heart Rate 81 97 Respiratory 20 16 Rate Blood Pressure 146/92 H 126/85 H O2 Saturation 96 97 Oxygen O2 Source Room air Procedures - Laceration (location) right index finger Length in cm: 2 Wound type: Stellate, Into subcut fat, Clean Neurovascular status: Sensory intact, Motor intact, Vascular intact Tendon involvement: Tendon intact Anesthesia: Lidocaine 1% (digital block radial side.) Wound preparation: Irrigated copiously NS, Wound explored, To the base, debridement of wound edges (traumatic laceration/avulsion) Skin layer closure: Nylon, Interrupted, Size #-0 - enter number (4), Sutures - enter # (8) Other: Patient tolerated well, No complications PD Medical Decision Making - ED course Complexity details: considered differential (finger tip complex lac from dogbite. Not involving nail. No tendon injury. Sutures after debridement. Rx Augmentin. She declined opioids. ), d/w patient Departure - Departure Disposition: 01 Home, Self Care Clinical Impression: Dog bite of finger Condition: Stable Record reviewed to determine appropriate education?: Yes Instructions: ED Laceration Hand Follow-Up: Ashley Gibson ARNP [Primary Care Provider] - Prescriptions: Amox/Clav 875/125 [Augmentin] 1 each PO BID #10 tablet Comments: It is okay to wash and shower. Clean off the wound twice a day with soap and water, or peroxide and water. Apply some antibiotic ointment to it to keep it moist. Also to watch for signs of infection such as purulence, redness or increasing pain. Return to your primary care or the ER at the specified time for suture removal. Suture removal 8 to 10 days. Tylenol ibuprofen as needed for pains. Dog bites like this are at high risk for infection so we commonly will treat with an antibiotic twice daily for the next 5 days. I sent your prescription to the [facility] in [place]. Recheck if signs of infection. Gentle use of the finger initially and progress as tolerated over the next few days. Forms: PCP List Discharge Date/Time: 08/22/23 14:41
[2023-08-22] MEDS: TETANUS/DIPHTHERIA/PERTUSSIS 0.5 ML SYRINGE IM ONE (13:41)
[2023-08-22] MEDS: ACETAMINOPHEN 500 MG TABLET PO STA (13:42)
[2023-08-22] MEDS: AMOX/CLAV 875 MG/125 MG TABLET PO STA (13:42)
[2023-08-22 13:47] VITALS: BP 126/85; O2SAT 97
== END 2023-08-22 14:41 | disposition home or self-care (01) ==
LOC: ED 11:38
DX: S61.210A Laceration without foreign body of right index finger without damage to nail, initial encounter (principal); W54.0XXA Bitten by dog, initial encounter; Y92.830 Public park as the place of occurrence of the external cause; I10 Essential (primary) hypertension; F17.200 Nicotine dependence, unspecified, uncomplicated
CPT/HCPCS: 13131; 90471; 99283; A9270

== ENCOUNTER 2023-09-09 13:26 | Outpatient (CLI) | payer MEDICARE ==
--- NOTE | 2023-09-10 08:07 | Mammography Report ---
BILATERAL DIGITAL SCREENING MAMMOGRAM 3D/2D: 09/09/2023 CLINICAL: Routine screening. Comparison is made to exams dated: 07/14/2022 mammogram, 10/25/2018 mammogram, 04/19/2018 mammogram, mammogram - [facility], 02/19/2015 mammogram, and 01/31/2015 [facility]ogram [facility]. There are scattered areas of fibroglandular density in both breasts (category b / 25%-50% glandular t issue). There is a biopsy clip in the right breast. No significant masses, calcifications, or other findings are seen in either breast. There has been no significant interval change. IMPRESSION: BENIGN There is no mammographic evidence of malignancy. A 1 year screening mammogram is recommended. Based on the Tyrer Cuzick model (a risk assessment model) the patient's lifetime risk is 4.4% and her 10 year risk is 2.8%. According to the ACR, ACS, and NCCN guidelines, an annual breast MRI exam mateo g with mammogram is recommended if the patient's lifetime risk is 20% or greater. This exam was interpreted at Station ID: [id number]. NOTE: For mammograms, a report in lay terms will be sent to the patient. Approximately 15% of breast malignancies will not be visualized mammographically. In the management of a palpable breast mass, a negative mammogram must not discourage biopsy of a clinically suspicious lesion. Electronically Signed By: Marcin griffin/chris:09/09/2023 14:03:57 letter sent: No_Letter ACR BI-RADS Category 2: Benign Finding(s) 3342F PARENCHYMAL PATTERN: (A) - The breast(s) demonstrate(s) scattered fibroglandular densities. BI-RADS CATEGORY: (2) - 2 RECOMMENDATION: (ANNUAL) - Recommend routine annual screening mammography. [id number] 1 year screening LATERALITY: (B)
== END 2023-09-09 13:27 | disposition home or self-care (01) ==
LOC: DI 13:26
PROVIDERS: ATTEND Registered Nurse
DX: Z12.31 Encounter for screening mammogram for malignant neoplasm of breast (principal); R92.323 Mammographic fibroglandular density, bilateral breasts

== ENCOUNTER 2023-09-09 13:28 | Outpatient (CLI) | payer MEDICARE ==
--- NOTE | 2023-09-09 15:18 | DEXA Report ---
PROCEDURE: Dexa Spine and/or Hip INDICATIONS: POST MENOPAUSAL TECHNIQUE: Dual energy x-ray absorptiometry (DXA) was performed on a [employer] System. Regions measur ed are the AP Spine, femoral neck, and if needed forearm. COMPARISON: None FINDINGS: Lumbar Spine (L3-L4): Bone Mineral Density: 1.24 g/cm/cm,T score: 0.3. Left Femoral Neck: Bone Mineral Density: 0.703 g/cm/cm, T score: -2.4. Left Hip: Bone Mineral Density: 0.766 g/cm/cm,T score: -1.9. (T score greater or equal to -1.0: NORMAL) (T score from -1.1 to -2.4: OSTEOPENIA) (T score less than or equal to -2.5 to: OSTEOPOROSIS) Impression: By WHO criteria, this patient has low bone density (osteopenia). Patients with diagnosis of osteoporosis or osteopenia should have regular bone mineral density assess ment. For those eligible for Medicare, routine testing is allowed once every 2 years. Testing frequ ency can be increased for patients who have rapidly progressing disease or for those who are receivin g medical therapy to restore bone mass. Reviewed by: Chaparrita Rushing MD on 09/09/2023 3:16 PM PDT Approved by: Chaparrita Rushing MD on 09/09/2023 3:16 PM PDT Station ID: [id number]
== END 2023-09-09 13:29 | disposition home or self-care (01) ==
LOC: DI 13:28
PROVIDERS: ATTEND Registered Nurse
DX: M85.89 Other specified disorders of bone density and structure, multiple sites (principal); Z78.0 Asymptomatic menopausal state